=== PATIENT | male | born 2000 ===

== ENCOUNTER 2019-03-20 00:47 | Emergency (ER) | payer BC ==
[2019-03-20] MEDS ORDERED: Diph,Pert(Acell),Tet Vac 0.5 ML SYR IM ONE (01:53)
--- NOTE | 2019-03-20 02:12 | RADIOLOGY REPORT ---
EXAMINATION: Right Toes, Minimum Two Views EXAM DATE: 03/20/2019 2:09 AM TECHNIQUE: AP, lateral, and oblique INDICATION: injury COMPARISON: None ENCOUNTER: Initial FINDINGS: There is no bone or joint abnormality. No retained radiopaque foreign bodies. Dictated by: Malina Carvalho MD on 03/20/2019 2:09 AM. .
--- NOTE | 2019-03-20 02:13 | Emergency Department Record ---
History of Present Illness - General Chief Complaint: Laceration(s) Stated Complaint: FOOT LACERATION Time Seen by Provider: 03/20/19 01:53 Source: Patient Mode of Arrival: Ambulatory Limitations: No limitations - History of Present Illness Initial Commments: pt slipped in shower and cut his 4th toe on a faucet. Onset/Timin -: Minutes(s) Extremity Location: Right: Foot Place: Home Context: Accidental, Fall Associated Symptoms: None Treatments Prior to Arrival: Bandage - [place] Coma Scale Eye Response: (4) Open spontaneously Motor Response: (6) Obeys commands Verbal Response: (5) Oriented Tomasz Total: 15 - Related Data Hx Tetanus Toxoid Vaccination: Yes Patient Tetanus UTD (within 5 yrs): No Home Medications Medication Instructions Recorded Confirmed Last Taken No Home Med [NO HOME MEDS] 03/20/19 03/20/19 Unknown Allergies Allergy/AdvReac Type Severity Reaction Status Date / Time No Known Allergies Allergy Unverified 02/16/19 16:05 Travel Screening - Travel/Exposure Within Last 30 Days Have you traveled within the last 30 days?: No - Travel Symptoms Symptom Screening: None Review of Systems Reviewed: No additional complaints except as noted below Constitutional: Reports: As per HPI. Denies: Chills, Fever, Malaise, Night sweats, Weakness, Weight change Eyes: Reports: As per HPI. Denies: Eye discharge, Eye pain, Photophobia, Vision change ENT: Reports: As per HPI. Denies: Congestion, Dental pain, Ear pain, Epistaxis, Hearing loss, Throat pain Respiratory: Reports: As per HPI. Denies: Cough, Dyspnea, Hemoptysis, Stridor, Wheezes Cardiovascular: Reports: As per HPI. Denies: Arrhythmia, Chest pain, Dyspnea on exertion, Edema, Murmurs, Orthopnea, Palpitations, Paroxysmal nocturnal dyspnea, Rheumatic Fever, Syncope Endocrine: Reports: As per HPI. Denies: Fatigue, Heat or cold intolerance, Polydipsia, Polyuria Gastrointestinal: Reports: As per HPI. Denies: Abdominal pain, Constipation, Diarrhea, Hematemesis, Hematochezia, Melena, Nausea, Vomiting Genitourinary: Reports: As per HPI. Denies: Dysuria, Frequency, Hematuria, Incontinence, Retention, Testicular pain, Testicular mass, Urgency Musculoskeletal: Reports: As per HPI. Denies: Arthralgia, Back pain, Gout, Joint swelling, Myalgia, Neck pain Skin: Reports: As per HPI. Denies: Bruising, Change in color, Change in hair/nails, Lesions, Pruritus, Rash Neurological: Reports: As per HPI. Denies: Abnormal gait, Confusion, Headache, Numbness, Paresthesias, Seizure, Tingling, Tremors, Vertigo, Weakness Psychiatric: Reports: As per HPI. Denies: Anxiety, Auditory hallucinations, Depression, Homicidal thoughts, Suicidal thoughts, Visual hallucinations Hematological/Lymphatic: Reports: As per HPI. Denies: Anemia, Blood Clots, Easy bleeding, Easy bruising, Swollen glands Past Medical History - SOCIAL HISTORY Smoking Status: Never smoker Alcohol Use: None Drug Use: None - RESPIRATORY Hx Respiratory Disorders: No - CARDIOVASCULAR Hx Cardio Disorders: No - NEURO Hx Neuro Disorders: No - GI Hx GI Disorders: No - Hx Genitourinary Disorders: No - ENDOCRINE Hx Endocrine Disorders: No - MUSCULOSKELETAL Hx Musculoskeletal Disorders: No - PSYCH Hx Psych Problems: No - HEMATOLOGY/ONCOLOGY Hx Hematology/Oncology Disorders: No Family Medical History Any Significant Family History?: Yes Hx Diabetes: Mother, Grandparents Hx Heart Disease: Mother Hx Resp Disorders: Mother Physical Exam - General General Appearance: Alert, Oriented x3, Cooperative, No acute distress - Head Head exam: Normal inspection - Eye Eye exam: Normal appearance, PERRL, EOMI Pupils: Normal accommodation - ENT ENT exam: Normal exam, Mucous membranes moist, Normal external ear exam, Normal orophraynx Ear exam: Normal external inspection. negative: External canal tenderness Nasal Exam: Normal inspection. negative: Discharge, Sinus tenderness Mouth exam: Normal external inspection, Tongue normal Teeth exam: Normal inspection. negative: Dental caries Throat exam: Normal inspection. negative: Tonsillar erythema, Tonsillar exudate - Neck Neck exam: Normal inspection, Full ROM. negative: Tenderness - Respiratory Respiratory exam: Normal lung sounds bilaterally. negative: Respiratory distress - Cardiovascular Cardiovascular Exam: Regular rate, Normal rhythm, Normal heart sounds - GI/Abdominal GI/Abdominal exam: Soft, Normal bowel sounds. negative: Tenderness - Rectal Rectal exam: Deferred - exam: Deferred - Extremities Extremities exam: Full ROM, Normal capillary refill, Tenderness Image of Feet: 1 - v shaped 3.5cm lac - Back Back exam: Reports: Normal inspection, Full ROM. Denies: Muscle spasm, Rash noted, Tenderness - Neurological Neurological exam: Alert, Normal gait, Oriented X3, Reflexes normal - Psychiatric Psychiatric exam: Normal affect, Normal mood - Skin Skin exam: Dry, Intact, Normal color, Warm Course Vital Signs 03/20/19 00:53 Temperature 97.9 F Pulse Rate 106 H Respiratory 18 Rate Blood Pressure 140/86 Pulse Ox 98 Disposition Disposition: Discharge Clinical Impression: Laceration Disposition: Home, Self-Care Condition: (1) Good Instructions: Laceration (ED), Care For Your Stitches (ED) Additional Instructions: follow up with family doctor. return sooner if worse. stitches out in 10days. Forms: Patient Portal Access Quality - Quality Measures Quality Measures: N/A - Blood Pressure Screening Does Patient Have Any of the Following: No Blood Pressure Classification: Pre-Hypertensive BP Reading Systolic Measurement: 140 Diastolic Measurement: 86 Screening for High Blood Pressure: < Pre-Hypertensive BP, F/U Documented > [G8950] Pre-Hypertensive Follow-up Interventions: Follow-up with rescreen every year. Laceration - Other - Time Out Informed consent:: Informed consent obtained Confirmed first & last name, , procedure, correct site?: Yes Start Date:: 03/20/19 Start Time:: 01:30 - Location Location of laceration:: Right Laceration located on:: Toe Laceration digit detail:: 4th Length of laceration:: 3.5 Length of laceration:: cm - Clean and Prep Laceration cleaning method:: Cleansed, Copious Irrigation Laceration cleaning agent:: Normal Saline, Shur Clens - Local Anesthetic Lidocaine used:: 1% Lidocaine dose:: 2 mL EMLA cream used?: No - Medication Medicated for procedure?: No - Procedural Detail Tissue detail:: Torn, Devitalized Foreign body in the wound?: No Undermining was preformed?: No Stent applied?: No [place] applied?: No Retention suture(s) applied?: Yes Skin suture pattern:: Interrupted Suture material/size:: 5-0: Nylon Number of skin sutures:: 7 Neurovascular intact?: Yes - Post Procedural Detail Complications:: Yes (partial tendon lac. pt able to fully extend and flex against resistance) Procedure Tolerated by Patient:: Well
== END 2019-03-20 02:30 | disposition home or self-care (01) ==
LOC: ER 00:47
DX: S91.114A Laceration without foreign body of right lesser toe(s) without damage to nail, initial encounter (principal); S96.921A Laceration of unspecified muscle and tendon at ankle and foot level, right foot, initial encounter; W18.2XXA Fall in (into) shower or empty bathtub, initial encounter; Y93.E1 Activity, personal bathing and showering; Y92.002 Bathroom of unspecified non-institutional (private) residence as the place of occurrence of the external cause
CPT/HCPCS: 12042; 73660; 90715; 96372; 99284